=== PATIENT | female | born 1995 | race Caucasian/White ===

== ENCOUNTER 2016-09-10 11:43 | Emergency (ER) | payer OTHER ==
--- NOTE | ~2016-09-10 | EKG ---
PATIENT: CINTHYA PIERSON UNIT #: [id number] Ventricular Rate: 75 BPM Atrial Rate: 75 BPM P-R Interval: 144 ms QRS Duration: 76 ms Q-T Interval: 396 ms QTC Calculation(Bezet): 442 ms P [place]: 52 degrees Calculated R [place]: 38 degrees Calculated T [place]: 43 degrees Diagnosis Line: Normal sinus rhythm with sinus arrhythmia Diagnosis Line: Normal ECG Diagnosis Line: No previous ECGs available Diagnosis Line: Confirmed by NICHOLAS AGUAYO MD ([id number]) on Diagnosis Line: 09/11/2016 1:38:40 PM INTERPRETING MD: OLIVIER PETERSON
[2016-09-10 13:00] LABS: URINE APPEARANCE CLEAR; URINE BILIRUBIN NEG (NEG); URINE COLOR YELLOW; URINE GLUCOSE NEG (NORM); URINE KETONE NEG (NEG); URINE LEUKOCYTE ESTERASE NEG (NEG); URINE NITRATE NEG (NEG); URINE PH 6.5 (5-8); URINE PROTEIN NEG (NEG); URINE SOURCE CLEAN CATCH; URINE UROBILINOGEN 0.2 MG/DL (NORM)
[2016-09-10 13:01] LABS: MICRO INDICATED? NO; URINE BLOOD NEG (NEG)
== END 2016-09-10 13:22 | disposition home or self-care (01) ==
LOC: SED 11:43
PROVIDERS: Emergency Medicine
DX: H65.01 Acute serous otitis media, right ear (principal); H83.01 Labyrinthitis, right ear; F17.200 Nicotine dependence, unspecified, uncomplicated; Z88.8 Allergy status to other drugs, medicaments and biological substances
CPT/HCPCS: 81003; 84703; 93005; 99284